=== PATIENT | male | born 1940 | race Caucasian/White ===

== ENCOUNTER 2017-10-27 17:31 | Emergency (ER) | payer OTHER ==
--- NOTE | 2017-10-27 18:32 | EDPHY ---
H & P Stated Complaint: fatigue, SOB, dry cough - Personal History Current Tetanus/Diphtheria Vaccine: Yes Current Tetanus Diphtheria and Acellular Pertussis (TDAP): Yes - Medical/Surgical History Hx Asthma: No Hx Chronic Respiratory Disease: No Hx Diabetes: No Hx Cardiac Disease: No Hx Renal Disease: No Hx Cirrhosis: No Hx Alcoholism: No Hx HIV/AIDS: No Hx Splenectomy or Spleen Trauma: No Other PMH: PROSTATE CA, KIDNEY PROBLEMS - Social History Smoking Status: Never smoked Constitutional: Initial Vital Signs Temperature (C) 37.9 C 10/27/17 17:51 Heart Rate 90 10/27/17 17:51 Respiratory Rate 16 10/27/17 17:51 Blood Pressure 118/65 10/27/17 17:51 O2 Sat (%) 95 10/27/17 17:51 O2 Delivery Mode Room Air Allergies/Adverse Reactions: No Known Allergies Allergy (Unverified 10/27/17 17:51) Departure - Departure Referrals: Dontae Blue MD [Primary Care Provider] - As per Instructions
--- NOTE | 2017-10-27 18:57 | EDPHY ---
H & P Time Seen by Provider: 10/27/17 18:37 HPI/ROS: CHIEF COMPLAINT: Shortness of breath, dry cough HISTORY OF PRESENT ILLNESS: The patient is a 77-year-old male with a history of CLL and prostate cancer presents emergency department with increasing shortness of breath and dry cough. The patient states his symptoms have been present for the past few weeks. 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 His cough is nonproductive. He has no chest pain. He has mild generalized fatigue. He states he saw Dr. Kirkpatrick yesterday. Some blood work was performed but he does not have the results. No imaging was completed. Patient states that he received his type words vaccination on Monday for travel. REVIEW OF SYSTEMS: My complete review of systems is negative except as mentioned in the HPI. Past Medical/Surgical History: Includes prostate cancer, kidney problems, CLL Social history: Patient does not smoke Smoking Status: Never smoked Physical Exam: Vitals noted. 37.9 GENERAL: Well-appearing, in no acute distress, alert. HEENT: Eyes normal to inspection, normal pharynx, no signs of dehydration. NECK: No thyromegaly, no lymphadenopathy, supple. RESPIRATORY: Clear to auscultation bilaterally, no rales, rhonchi or wheezing. CVS: Regular rate and rhythm, no rubs, murmurs, or gallops. ABDOMEN: Soft, nontender, nondistended, no organomegaly. BACK: Normal to inspection, no CVA tenderness. SKIN: Normal color, no rash, warm, dry. No pallor. EXTREMITIES: No pedal edema, no calf tenderness, no Homans sign or cords, no joint swelling. NEURO/PSYCH: Alert and oriented x3, normal mood and affect, normal motor sensory exam. No obvious cranial nerve deficit. Constitutional: Initial Vital Signs Temperature (C) 37.9 C 10/27/17 17:51 Heart Rate 90 10/27/17 17:51 Respiratory Rate 16 10/27/17 17:51 Blood Pressure 118/65 10/27/17 17:51 O2 Sat (%) 95 10/27/17 17:51 O2 Delivery Mode Room Air Allergies/Adverse Reactions: No Known Allergies Allergy (Unverified 10/27/17 17:51) Home Medications: Medication Instructions Recorded Azithromycin 250 mg PO DAILY #4 tablet 10/27/17 Medical Decision Making - Diagnostics Imaging Results: Imaging Impressions Chest X-Ray 10/27/17 18:58 Impression: No acute pulmonary disease. Chest/Thorax CTA 10/27/17 20:16 Impression: 1. Suboptimal, without definite pulmonary thromboemboli. 2. Multiple abnormal bilateral axillary lymph nodes consistent with the patient 's chronic lymphocytic leukemia. 3. Patchy bilateral lower lobe atelectasis, without pleural effusion or definite pneumonia. Findings and recommendations discussed with Emergency Department physician, Mine Hogan M.D., at 2107 hours, on October 27, 2017. Final report concurs with initial preliminary interpretation. A test result has been communicated to a licensed care provider and documented in the [employer] Critical Result system on 10/27/2017 21:04, Message ID [id number]. ED Course/Re-evaluation: In the emergency department I discussed possible etiologies with the patient. I answered all his questions. The patient was noted to have blood drawn yesterday[place] [address]. This was not approved from a previous level of 32. Hematocrit was 41. Platelets were slightly low 148. This was down from 209. Patient's chemistry panel is unremarkable. Today in the emergency department I repeated labs. Chest x-ray was ordered. Patient has white count was elevated today at 13,000. Patient's D-dimer is elevated. Chest x-ray: No acute disease. I discussed the results with the patient. I answered all his questions. Because of the patient's elevated D-dimer a CT angiogram was ordered. CT angiogram of the chest: Please refer the dictated report. Patient does have bilateral atelectasis versus infiltrate. I discussed the results with the patient. Patient will be given azithromycin. He is given the 1st dose in the emergency department. He was subsequently given a prescription. He was given warnings prior to leaving. He will follow up with Dr. Blue. He has an appointment on Monday. Differential Diagnosis: My differential includes but is not limited to CLL, ACS, acute MN, effusion, pneumonia, bronchitis, DVT, PE, electrolyte abnormality, sugar abnormality, leukocytosis - Data Points Laboratory Results: Laboratory Results 10/27/17 19:21 10/27/17 19:21 10/27/17 10/27/17 10/27/17 19:23 19:21 19:21 WBC RBC Hgb Hct MCV MCH MCHC RDW Plt Count MPV Neut % (Auto) Lymph % (Auto) [place] % (Auto) Eos % (Auto) Baso % (Auto) Nucleat RBC Rel Count Absolute Neuts (auto) Absolute Lymphs (auto) Absolute Monos (auto) Absolute Eos (auto) Absolute Basos (auto) Absolute Nucleated RBC Immature Gran % Immature Gran # RBC/WBC/PLT Morphology Platelet Estimate D-Dimer 1.58 ug/mLFEU H ug/mLFEU (0.00-0.50) Sodium 140 mEq/L mEq/L (135-145) Potassium 4.3 mEq/L mEq/L (3.3-5.0) Chloride 104 mEq/L mEq/L (97-110) Carbon Dioxide 27 mEq/l mEq/l (22-31) Anion Gap 9 mEq/L mEq/L (8-16) BUN 29 mg/dL H mg/dL (7-23) Creatinine 1.3 mg/dL mg/dL (0.7-1.3) Estimated GFR 54 Glucose 101 mg/dL H mg/dL (70-100) Calcium 9.2 mg/dL mg/dL (8.5-10.4) POC Troponin I 0.01 ng/mL ng/mL (0.00-0.08) NT-Pro-B Natriuret Pep 302 pg/mL pg/mL (0-450) 10/27/17 19:21 WBC 13.98 10^3/uL H 10^3/uL (3.80-9.50) RBC 4.08 10^6/uL L 10^6/uL (4.40-6.38) Hgb 12.4 g/dL L g/dL (13.7-17.5) Hct 38.0 % L % (40.0-51.0) MCV 93.1 fL fL (81.5-99.8) MCH 30.4 pg pg (27.9-34.1) MCHC 32.6 g/dL g/dL (32.4-36.7) RDW 14.1 % % (11.5-15.2) Plt Count 120 10^3/uL L 10^3/uL (150-400) MPV 9.8 fL fL (8.7-11.7) Neut % (Auto) 27.4 % L % (39.3-74.2) Lymph % (Auto) 65.2 % H % (15.0-45.0) [place] % (Auto) 6.3 % % (4.5-13.0) Eos % (Auto) 0.9 % % (0.6-7.6) Baso % (Auto) 0.1 % L % (0.3-1.7) Nucleat RBC Rel Count 0.0 % % (0.0-0.2) Absolute Neuts (auto) 3.83 10^3/uL 10^3/uL (1.70-6.50) Absolute Lymphs (auto) 9.11 10^3/uL H 10^3/uL (1.00-3.00) Absolute Monos (auto) 0.88 10^3/uL H 10^3/uL (0.30-0.80) Absolute Eos (auto) 0.13 10^3/uL 10^3/uL (0.03-0.40) Absolute Basos (auto) 0.01 10^3/uL L 10^3/uL (0.02-0.10) Absolute Nucleated RBC 0.00 10^3/uL 10^3/uL (0-0.01) Immature Gran % 0.1 % % (0.0-1.1) Immature Gran # 0.01 10^3/uL 10^3/uL (0.00-0.10) RBC/WBC/PLT Morphology TNP Platelet Estimate TNP D-Dimer Sodium Potassium Chloride Carbon Dioxide Anion Gap BUN Creatinine Estimated GFR Glucose Calcium POC Troponin I NT-Pro-B Natriuret Pep Point of Care Test Results: Chemistry 10/27/17 19:23 POC Troponin I 0.01 ng/mL ng/mL (0.00-0.08) Departure - Departure Disposition: Home, Routine, Self-Care Clinical Impression: Shortness of breath Condition: Good Instructions: Dyspnea (ED) Additional Instructions: Take your entire course of antibiotics. Return with worsening symptoms or any other concerns. Referrals: Dontae Blue MD [Primary Care Provider] - 3-4 days, if not improved
[2017-10-27 19:31] LABS: PLATELET COUNT 120 10^3/uL (150-400)
[2017-10-27] MEDS ORDERED: IOPAMIDOL (ISOVUE 370) 100 ML BTL IV ONE (20:19)
[2017-10-27 21:23] VITALS: BP 124/83
[2017-10-27] MEDS ORDERED: AZITHROMYCIN 250 MG TAB PO ONE (21:34)
== END 2017-10-27 21:46 | disposition home or self-care (01) ==
DX: R06.02 Shortness of breath (principal); Z85.46 Personal history of malignant neoplasm of prostate
CPT/HCPCS: 71046; 71275; 99285; Q9967; 84484-PO

== ENCOUNTER 2017-10-28 17:15 | Emergency (ER) | payer OTHER ==
[2017-10-28] MEDS ORDERED: NS 1,000 ML IV ONE (17:46)
--- NOTE | 2017-10-28 17:46 | EDPHY ---
H & P Time Seen by Provider: 10/28/17 17:30 HPI/ROS: Chief complaint. Cough, fever, fatigue HPI. 77-year-old male presents emergency department with cough that is nonproductive and some fatigue for 2-3 weeks. He was seen in our emergency department yesterday workup was fairly normal. He was started on Zithromax. He is here today again because he still not feeling well and he had some shaking and chills over the past 3 days and then fever to 101.7 this afternoon. He received a typhoid vaccine as well as a hepatitis a vaccine 4 days ago for upcoming travel. He saw his oncologist 2 days ago who was not particularly alarmed. The patient has no chest pain. He does have a history of CLL. He had a normal chest x-ray yesterday and then a chest CT for PE as he had an elevated D-dimer. There was no evidence of either PE or pneumonia. He is concerned also that he has a history of kidney stones and did not have a urinalysis done yesterday as part of his workup. His symptoms have really been Respiratory and he has no abdominal pain or urinary symptoms. ROS Constitutional. Fever and chills Eyes. no problems with vision ENT. no sore throat, no nasal drainage Cardiovascular. no chest pain Respiratory. Nonproductive cough and shortness of breath with exertion Abdominal. no abdominal pain, no nausea/vomiting, no diarrhea . no problems urinating MS. no calf pain/swelling, no neck/back pain, no joint pain Skin. no rash Lymph. no swollen glands Neuro. no headache, no dizziness, no difficulty walking or with speech Past Medical/Surgical History: CLL, prostate cancer, kidney problems Social History: , nonsmoker, no alcohol Smoking Status: Never smoked Physical Exam: General Appearance: Alert well-developed male mild distress vital signs significant for temp 37.8 degrees Eyes: Pupils equal and round no pallor or injection. ENT, Mouth: Mucous membranes are moist. Respiratory: There are no retractions, lungs are clear to auscultation. Cardiovascular: Regular rate and rhythm. Gastrointestinal: Abdomen is soft and nontender, no masses, bowel sounds normal. Neurological: Awake and alert, sensory and motor exams grossly normal. Skin: Warm and dry, no rashes. Musculoskeletal: Neck is supple nontender. Extremities symmetrical, full range of motion. Psychiatric: Patient is oriented X 3, there is no agitation. Constitutional: Initial Vital Signs Temperature (C) 37.8 C 10/28/17 17:18 Heart Rate 78 10/28/17 17:18 Respiratory Rate 18 10/28/17 17:18 Blood Pressure 129/65 H 10/28/17 17:18 O2 Sat (%) 94 10/28/17 17:18 O2 Delivery Mode Room Air Allergies/Adverse Reactions: No Known Allergies Allergy (Verified 10/28/17 17:16) Home Medications: Medication Instructions Recorded Azithromycin 250 mg PO DAILY #4 tablet 10/27/17 Medical Decision Making Procedures: IV normal saline. Sepsis workup. ED Course/Re-evaluation: Re-evaluation 7:15 p.m.. Patient is stable. He and I discussed laboratory evaluation treatment plan including criteria for return importance of follow-up and further evaluation. He expresses understanding and agreement I asked him about an albuterol inhaler any artery has 1 in his using it. Differential Diagnosis: No evidence for sepsis. He had chest x-rays yesterday and CT which showed no evidence for pneumonia. He has markedly elevated white counts likely secondary to his CLL but he has a reassuring trend of resolution of leukocytosis. I also considered urinary tract infection. - Data Points Laboratory Results: Laboratory Results 10/28/17 18:00 10/28/17 18:00 10/28/17 10/28/17 10/28/17 18:00 18:00 18:00 WBC RBC Hgb Hct MCV MCH MCHC RDW Plt Count MPV Neut % (Auto) Lymph % (Auto) [place] % (Auto) Eos % (Auto) Baso % (Auto) Nucleat RBC Rel Count Absolute Neuts (auto) Absolute Lymphs (auto) Absolute Monos (auto) Absolute Eos (auto) Absolute Basos (auto) Absolute Nucleated RBC Immature Gran % Immature Gran # Platelet Estimate PT 13.8 SEC SEC (12.0-15.0) INR 1.04 (0.83-1.16) APTT 37.3 SEC SEC (23.0-38.0) VBG Lactic Acid Sodium 141 mEq/L mEq/L (135-145) Potassium 4.5 mEq/L mEq/L (3.3-5.0) Chloride 104 mEq/L mEq/L (97-110) Carbon Dioxide 27 mEq/l mEq/l (22-31) Anion Gap 10 mEq/L mEq/L (8-16) BUN 28 mg/dL H mg/dL (7-23) Creatinine 1.2 mg/dL mg/dL (0.7-1.3) Estimated GFR 59 Glucose 110 mg/dL H mg/dL (70-100) Calcium 8.9 mg/dL mg/dL (8.5-10.4) Total Bilirubin 0.4 mg/dL mg/dL (0.1-1.4) Urine Color YELLOW Urine Appearance CLEAR Urine pH 5.0 (5.0-7.5) Ur Specific [place] 1.027 (1.002-1.030) Urine Protein 1+ H (NEGATIVE) Urine Ketones NEGATIVE (NEGATIVE) Urine Blood NEGATIVE (NEGATIVE) Urine Nitrate NEGATIVE (NEGATIVE) Urine Bilirubin NEGATIVE (NEGATIVE) Urine Urobilinogen NEGATIVE EU EU (0.2-1.0) Ur Leukocyte Esterase NEGATIVE (NEGATIVE) Urine RBC NONE SEEN /hpf /hpf (0-3) Urine WBC 1-3 /hpf /hpf (0-3) Ur Epithelial Cells NONE SEEN /lpf /lpf (NONE-1+) Urine Mucus TRACE /lpf /lpf (NONE-1+) Urine Glucose NEGATIVE (NEGATIVE) 10/28/17 10/28/17 18:00 18:00 WBC 13.03 10^3/uL H 10^3/uL (3.80-9.50) RBC 3.93 10^6/uL L 10^6/uL (4.40-6.38) Hgb 12.1 g/dL L g/dL (13.7-17.5) Hct 36.6 % L % (40.0-51.0) MCV 93.1 fL fL (81.5-99.8) MCH 30.8 pg pg (27.9-34.1) MCHC 33.1 g/dL g/dL (32.4-36.7) RDW 14.1 % % (11.5-15.2) Plt Count 115 10^3/uL L 10^3/uL (150-400) MPV 10.3 fL fL (8.7-11.7) Neut % (Auto) Pending Lymph % (Auto) Pending [place] % (Auto) Pending Eos % (Auto) Pending Baso % (Auto) Pending Nucleat RBC Rel Count Pending Absolute Neuts (auto) Pending Absolute Lymphs (auto) Pending Absolute Monos (auto) Pending Absolute Eos (auto) Pending Absolute Basos (auto) Pending Absolute Nucleated RBC Pending Immature Gran % Pending Immature Gran # Pending Platelet Estimate Pending PT INR APTT VBG Lactic Acid 1.8 mmol/L mmol/L (0.7-2.1) Sodium Potassium Chloride Carbon Dioxide Anion Gap BUN Creatinine Estimated GFR Glucose Calcium Total Bilirubin Urine Color Urine Appearance Urine pH Ur Specific [place] Urine Protein Urine Ketones Urine Blood Urine Nitrate Urine Bilirubin Urine Urobilinogen Ur Leukocyte Esterase Urine RBC Urine WBC Ur Epithelial Cells Urine Mucus Urine Glucose Medications Given: Discontinued Medications Sodium Chloride (Ns) 1,000 mls @ 0 mls/hr IV EDNOW ONE; Wide Open PRN Reason: Protocol Stop: 10/28/17 17:47 Last Admin: 10/28/17 18:02 Dose: 1,000 mls Departure - Departure Disposition: Home, Routine, Self-Care Clinical Impression: Bronchitis Condition: Good Instructions: Acute Bronchitis (ED) Additional Instructions: Continued Zithromax until gone. Continue albuterol inhaler. Tylenol 1000 mg every 4-6 hours, ibuprofen 600 mg every 6 hr as needed for fever Return for worsening symptoms Keep your follow-up appointment with Dr. Blue on Monday Referrals: Dontae Blue MD [Primary Care Provider] - 2-3 days without fail
[2017-10-28 18:14] LABS: PLATELET COUNT 115 10^3/uL (150-400)
[2017-10-28 18:22] LABS: INR 1.04 (0.83-1.16); PROTIME(PATIENT) 13.8 SEC (12.0-15.0)
[2017-10-28 19:26] VITALS: BP 111/73
== END 2017-10-28 19:26 | disposition home or self-care (01) ==
DX: J40 Bronchitis, not specified as acute or chronic (principal); E86.9 Volume depletion, unspecified; Z85.46 Personal history of malignant neoplasm of prostate

== ENCOUNTER → 2017-11-01 | Outpatient (CLI) | payer OTHER | LOC: BHFA 14:45 | PROVIDERS: ATTEND Internal Medicine Cardiovascular Disease | DX: I42.9 Cardiomyopathy, unspecified (principal) ==